=== PATIENT | male | born 1935 | race Caucasian/White ===

== ENCOUNTER 2016-07-28 00:22 | Emergency (ER) | payer MEDICARE, OTHER ==
[~2016-07-28] VITALS: Ht 177.8 cm; Wt 76.4 kg
[~2016-07-28 00:22] MED LIST: ATOR10TA9 PO; CIPR500T87 PO; ERGO500017 PO; FINA5TAB4 PO; GLIM4TAB2 PO; HYDR-3240 PO; METF10002 PO; RAMI2.5C PO; REPA2TAB7 PO; TAMS0.4C2 PO
[2016-07-28] MEDS ORDERED: HYDROcodone/APAP 5/325 TABLET ONE (00:56)
[2016-07-28] MEDS ORDERED: IBUPROFEN 200 MG TABLET ONE (00:56)
[2016-07-28] MEDS ORDERED: IBUPROFEN 200 MG TABLET PO ONE (01:00)
[2016-07-28] MEDS ORDERED: HYDROcodone/APAP 5/325 TABLET PO ONE (01:00)
[2016-07-28 02:12] VITALS: BP 146/81
== END 2016-07-28 02:15 | disposition home or self-care (01) ==
LOC: ED 02:10
DX: S22.32XA Fracture of one rib, left side, initial encounter for closed fracture (principal); E11.9 Type 2 diabetes mellitus without complications; W19.XXXA Unspecified fall, initial encounter; Y93.89 Activity, other specified; Y92.89 Other specified places as the place of occurrence of the external cause; Y99.8 Other external cause status
CPT/HCPCS: 71250; 99284

== ENCOUNTER → 2017-08-04 | Outpatient (CLI) | payer MEDICARE, OTHER ==
[~2017-08-04] MED LIST changes: +CHOL10002 PO
== END | disposition home or self-care (01) ==
LOC: CFH 12:41
PROVIDERS: ATTEND Internal Medicine
DX: N62 Hypertrophy of breast (principal); N63.42 Unspecified lump in left breast, subareolar; E11.9 Type 2 diabetes mellitus without complications
CPT/HCPCS: 77066

== ENCOUNTER 2017-08-17 08:12 | Emergency (ER) | payer MEDICARE, OTHER ==
[~2017-08-17] VITALS: Ht 177.8 cm; Wt 69.0 kg
[2017-08-17 08:14] VITALS: BP 145/78
[2017-08-17] MEDS ORDERED: LIDOCAINE-MPF 2% ,5ML ONE (09:00)
[2017-08-17] MEDS ORDERED: LIDOCAINE 2%, 20ML SQ ONE (09:00)
== END 2017-08-17 09:46 | disposition home or self-care (01) ==
LOC: ED 09:02
DX: L02.31 Cutaneous abscess of buttock (principal); N45.1 Epididymitis; E11.9 Type 2 diabetes mellitus without complications
CPT/HCPCS: 10060; 82962; 99283; J3490

== ENCOUNTER 2018-06-01 08:16 | Outpatient (CLI) | payer MEDICARE, OTHER ==
[~2018-06-01 08:16] MED LIST changes: -RAMI2.5C PO; +RAMI2.5C2 PO
[2018-06-01 09:58] LABS: ALBUMIN 3.9 g/dL (3.4-5.0); ANION GAP 6 mmol/L (5-15); CHLORIDE 104 mmol/L (98-107)
[2018-06-01 10:00] LABS: ALANINE AMINOTRANSFERASE 16 U/L (12-78); ALKALINE PHOSPHATASE 87 U/L (45-117); BILIRUBIN,TOTAL 0.6 mg/dL (0.2-1.0); TOTAL PROTEIN 7.1 g/dL (6.4-8.2)
[2018-06-02] MEDS ORDERED: PIOG30TA4 PO (08:17)
[2018-06-02] MEDS ORDERED: EMPA25TA PO (08:17)
== END 2018-06-01 23:59 | disposition home or self-care (01) ==
LOC: STAR 08:16
PROVIDERS: ATTEND Surgery
DX: Z01.818 Encounter for other preprocedural examination (principal); I44.0 Atrioventricular block, first degree; D40.10 Neoplasm of uncertain behavior of unspecified testis
CPT/HCPCS: 36415; 80053; 93005

== ENCOUNTER 2018-06-03 20:07 | Emergency (ER) | payer MEDICARE, OTHER ==
[~2018-06-03] VITALS: Ht 177.8 cm; Wt 69.9 kg
[~2018-06-03 20:07] MED LIST changes: +EMPA25TA PO; +PIOG30TA4 PO
[2018-06-03 20:11] VITALS: BP 126/82
--- NOTE | 2018-06-03 21:19 | NUR ---
PT TAKEN TO XRAY WITH TECH.
== END 2018-06-03 22:09 | disposition home or self-care (01) ==
LOC: ED 20:44
DX: S60.222A Contusion of left hand, initial encounter (principal); S60.221A Contusion of right hand, initial encounter; S70.02XA Contusion of left hip, initial encounter; E11.9 Type 2 diabetes mellitus without complications; W01.0XXA Fall on same level from slipping, tripping and stumbling without subsequent striking against object, initial encounter; Y93.89 Activity, other specified; Y92.89 Other specified places as the place of occurrence of the external cause; Y99.8 Other external cause status
CPT/HCPCS: 72190; 99283

== ENCOUNTER 2018-06-08 12:00 | Outpatient (CLI) | payer MEDICARE, OTHER ==
[2018-06-01 14:52] VITALS: BP 119/74
[~2018-06-08] VITALS: Ht 177.8 cm; Wt 66.9 kg
[2018-06-08] MEDS ORDERED: LACTATED RINGERS 1,000 ML IV SCH (14:03)
== END 2018-06-08 23:59 | disposition home or self-care (01) ==
LOC: OUT 12:00 → OR 13:29 → EDSTATUS 15:30 → CFH 18:00 → OUT 23:59
PROVIDERS: ATTEND Surgery
DX: D40.12 Neoplasm of uncertain behavior of left testis (principal)
CPT/HCPCS: 82962

== ENCOUNTER 2018-07-04 08:35 | Outpatient (CLI) | payer MEDICARE, OTHER | END 2018-07-04 23:59 | disposition home or self-care (01) | LOC: STAR 08:35 | PROVIDERS: ATTEND Surgery | DX: Z02.9 Encounter for administrative examinations, unspecified (principal) ==

== ENCOUNTER 2018-07-13 09:32 | Day surgery (SDC) | payer MEDICARE, OTHER ==
[~2018-07-13] VITALS: Ht 177.8 cm; Wt 65.5 kg
[2018-07-13] MEDS ORDERED: LACTATED RINGERS 1,000 ML IV SCH (10:08)
[2018-07-13] MEDS ORDERED: GABAPENTIN 300 MG CAPSULE PO ONE (10:30)
[2018-07-13] MEDS ORDERED: ACETAMINOPHEN 500 MG TABLET PO ONE (10:30)
[2018-07-13 10:37] VITALS: BP 154/90
[2018-07-13] MEDS ORDERED: GLYCOPYRROLATE 0.2MG/1ML, 5ML ONE (12:08)
[2018-07-13] MEDS ORDERED: PROPOFOL 10 MG/ML, 20ML ONE (12:08)
[2018-07-13] MEDS ORDERED: ROCURONIUM 10MG/ML,5ML ONE (12:08)
[2018-07-13] MEDS ORDERED: NEOSTIGMINE 1 MG/ML, 10ML ONE (12:08)
[2018-07-13] MEDS ORDERED: FENTANYL PF 250 MCG/5ML ONE (12:08)
[2018-07-13] MEDS ORDERED: CEFAZOLIN 1,000 MG ONE (12:08)
[2018-07-13] MEDS ORDERED: BUPIVACAINE/PF-EPI 0.5% 1:200K ONE (12:12)
[2018-07-13] MEDS ORDERED: LIDOCAINE 1%, 20ML ONE (12:12)
[2018-07-13] MEDS ORDERED: PROMETHAZINE 25 MG/ML, 1ML IM PRN ×2 (12:30)
[2018-07-13] MEDS ORDERED: PROMETHAZINE 12.5 MG SUPP PR PRN (12:30)
[2018-07-13] MEDS ORDERED: OXYcodone 5 MG/5 ML ORAL.SOL UDC PO PRN ×2 (12:30→14:00)
[2018-07-13] MEDS ORDERED: MORPHINE SULFATE 4 MG/ML, 1ML IVPush PRN (12:30)
[2018-07-13] MEDS ORDERED: MEPERIDINE/PF 25MG/0.5ML IVPush PRN (12:30)
[2018-07-13] MEDS ORDERED: ONDANSETRON ODT 8 MG PO PRN (12:30)
[2018-07-13] MEDS ORDERED: HYDROmorphone 2 MG/ML, 1ML IVPush PRN (12:30)
[2018-07-13] MEDS ORDERED: PROMETHAZINE 25 MG SUPP PR PRN (12:30)
[2018-07-13] MEDS ORDERED: PROMETHAZINE 25 MG/ML, 1ML IV PRN (12:30)
[2018-07-13] MEDS ORDERED: hydrALAzine 20 MG/ML, 1ML IV PRN (12:30)
[2018-07-13] MEDS ORDERED: ONDANSETRON 2MG/ML, 2ML IV PRN (12:30)
[2018-07-13] MEDS ORDERED: LABETALOL 5MG/ML, 20ML IV PRN (12:30)
[2018-07-13] MEDS ORDERED: OXYcodone 5 MG/5 ML ORAL.SOL UDC ONE (13:51)
[2018-07-13] MEDS ORDERED: FENTANYL PF 100 MCG/2ML ONE (13:51)
[2018-07-13] MEDS ORDERED: ONDANSETRON 2MG/ML, 2ML IVPush PRN (14:00)
[2018-07-13] MEDS: FENTANYL PF 100 MCG/2ML IV PRN ×3 (14:05→14:40)
[2018-07-13] MEDS ORDERED: HYDROmorphone 2 MG/ML, 1ML ONE (14:38)
== END 2018-07-13 19:30 | disposition home or self-care (01) ==
LOC: OUT 09:32
PROVIDERS: ATTEND Urology
DX: K43.9 Ventral hernia without obstruction or gangrene (principal); N50.89 Other specified disorders of the male genital organs; D40.12 Neoplasm of uncertain behavior of left testis; E11.9 Type 2 diabetes mellitus without complications; Z79.899 Other long term (current) drug therapy; Z79.84 Long term (current) use of oral hypoglycemic drugs; Z98.890 Other specified postprocedural states
CPT/HCPCS: 49590; 54530; 82962; 88309; C1729; C1781; J0690; J1170; J2704; J2710; J3010; J7120; 88312